=== PATIENT | female | born 1980 ===

== ENCOUNTER 2021-02-27 09:47 | Outpatient (CLI) | payer OTHER | END 2021-02-27 10:05 | disposition home or self-care (01) | LOC: SONOGRAMA 09:47 | PROVIDERS: ATTEND Surgery | DX: D24.1 Benign neoplasm of right breast (principal); N60.11 Diffuse cystic mastopathy of right breast; N60.12 Diffuse cystic mastopathy of left breast ==

== ENCOUNTER 2022-06-21 06:56 | Day surgery (SDC) | payer OTHER ==
[~2022-06-21] VITALS: Ht 162.6 cm; Wt 102.1 kg
[~2022-06-21 06:56] MED LIST: VITAMIN D210 MCG PO
[2022-06-21] MEDS ORDERED: IBU600 MG PO (11:07)
== END 2022-06-21 14:35 | disposition home or self-care (01) ==
LOC: CIR.AMB 06:56
PROVIDERS: ATTEND Obstetrics & Gynecology Gynecology
DX: N92.0 Excessive and frequent menstruation with regular cycle (principal); N72 Inflammatory disease of cervix uteri; T83.32XA Displacement of intrauterine contraceptive device, initial encounter; F17.210 Nicotine dependence, cigarettes, uncomplicated